=== PATIENT | female | born 1980 | race African-American/Black ===

== ENCOUNTER 2017-12-31 20:55 | Emergency (ER) | payer SELFPAY | END 2017-12-31 22:35 | disposition home or self-care (01) | LOC: BURERS 20:55 | DX: M77.12 Lateral epicondylitis, left elbow (principal); G43.909 Migraine, unspecified, not intractable, without status migrainosus; F31.9 Bipolar disorder, unspecified; F41.9 Anxiety disorder, unspecified; F17.210 Nicotine dependence, cigarettes, uncomplicated | CPT/HCPCS: 99282 ==

== ENCOUNTER 2018-07-13 00:08 | Emergency (ER) | payer SELFPAY ==
[2018-07-13] MEDS ORDERED: Ibuprofen 800 MG TAB ONE (00:24)
[2018-07-13] MEDS ORDERED: HYDROcodone/Acetaminophen 10/325 mg Tablet ONE (00:24)
== END 2018-07-13 00:31 | disposition home or self-care (01) ==
LOC: BURERS 00:08
DX: M25.512 Pain in left shoulder (principal); F31.9 Bipolar disorder, unspecified; F34.9 Persistent mood [affective] disorder, unspecified; F41.9 Anxiety disorder, unspecified; X50.0XXA Overexertion from strenuous movement or load, initial encounter
CPT/HCPCS: 99283

== ENCOUNTER 2018-09-21 23:16 | Emergency (ER) | payer SELFPAY ==
[2018-09-21] MEDS ORDERED: AMOXicillin 250 MG CAP ONE (23:46)
[2018-09-21] MEDS ORDERED: Benzonatate 100 MG CAP ONE (23:46)
[2018-09-21] MEDS ORDERED: Dexamethasone 4 MG TAB ONE (23:46)
== END 2018-09-22 00:01 | disposition home or self-care (01) ==
LOC: BURERS 23:16
DX: J06.9 Acute upper respiratory infection, unspecified (principal); J45.909 Unspecified asthma, uncomplicated; F31.9 Bipolar disorder, unspecified; F34.9 Persistent mood [affective] disorder, unspecified; Z79.51 Long term (current) use of inhaled steroids
CPT/HCPCS: 99283; J8540

== ENCOUNTER 2019-03-21 00:44 | Emergency (ER) | payer SELFPAY | END 2019-03-21 01:00 | disposition home or self-care (01) | LOC: BURERS 00:44 | DX: S29.012A Strain of muscle and tendon of back wall of thorax, initial encounter (principal); J45.909 Unspecified asthma, uncomplicated; F31.9 Bipolar disorder, unspecified; X50.0XXA Overexertion from strenuous movement or load, initial encounter | CPT/HCPCS: 99281 ==

== ENCOUNTER 2019-04-18 18:25 | Emergency (ER) | payer SELFPAY | END 2019-04-18 19:20 | disposition home or self-care (01) | LOC: BURERS 18:25 | DX: G89.29 Other chronic pain (principal); M25.512 Pain in left shoulder; M25.522 Pain in left elbow; M25.532 Pain in left wrist; J45.909 Unspecified asthma, uncomplicated; F31.9 Bipolar disorder, unspecified; F41.9 Anxiety disorder, unspecified; F17.210 Nicotine dependence, cigarettes, uncomplicated; Z79.51 Long term (current) use of inhaled steroids; Z79.899 Other long term (current) drug therapy | CPT/HCPCS: 99283 ==

== ENCOUNTER 2019-07-28 15:27 | Emergency (ER) | payer SELFPAY | END 2019-07-28 17:09 | disposition home or self-care (01) | LOC: BURERS 15:27 | DX: J06.9 Acute upper respiratory infection, unspecified (principal); F31.9 Bipolar disorder, unspecified; F41.9 Anxiety disorder, unspecified; F17.210 Nicotine dependence, cigarettes, uncomplicated | CPT/HCPCS: 87804; 99283 ==

== ENCOUNTER 2019-11-14 05:41 | Emergency (ER) | payer SELFPAY ==
[2019-11-14] MEDS ORDERED: Ibuprofen 200 MG TAB ONE (06:04)
--- NOTE | 2019-11-14 07:38 | RAD ---
RIGHT ANKLE 3 VIEWS: Date: 11/14/2019 No fracture seen. The joint surfaces are smooth and the bony structures appear intact. There may have been old trauma at the talonavicular joint, but this is certainly not recent. There is bony ossifica tion at the insertion of the Achilles tendon. IMPRESSION: No acute findings. POS: HOME
--- NOTE | 2019-11-14 07:40 | RAD ---
RIGHT KNEE 4 VIEWS: Date: 11/14/2019 No acute fracture or joint effusion seen. There may be a tiny bony density in the central part of the joint, or alternatively it may be a small bony spur projecting from the top of the tibia. In any debi e, it does not appear acute, or in the absence of a joint effusion, this further emphasizes this is n ot new. The articular surfaces of the knee are all smooth. IMPRESSION: No acute findings. POS: HOME
== END 2019-11-14 06:40 | disposition home or self-care (01) ==
LOC: BURERS 05:41
DX: S93.401A Sprain of unspecified ligament of right ankle, initial encounter (principal); S83.91XA Sprain of unspecified site of right knee, initial encounter; J45.909 Unspecified asthma, uncomplicated; F31.9 Bipolar disorder, unspecified; F17.210 Nicotine dependence, cigarettes, uncomplicated; F41.9 Anxiety disorder, unspecified; Z79.899 Other long term (current) drug therapy; W08.XXXA Fall from other furniture, initial encounter

== ENCOUNTER 2020-10-18 08:26 | Emergency (ER) | payer SELFPAY ==
[2020-10-18] MEDS ORDERED: HYDROcodone/Acetaminophen 5/325 mg Tablet ONE (08:42)
[2020-10-18] MEDS ORDERED: predniSONE 20 MG TAB ONE ×2 (08:58→08:59)
--- NOTE | 2020-10-18 10:01 | RAD ---
LEFT SHOULDER 3 VIEWS: DATE: 10/18/2020. FINDINGS: No fracture, dislocation, or AC joint widening was seen. No joint abnormality of concern was seen. There might be some minor cystic changes in the glenoid fossa, but no osteophytes or joint space narr owing was seen. IMPRESSION: No acute finding. POS: HOME
== END 2020-10-18 09:03 | disposition home or self-care (01) ==
LOC: BURERS 08:26
DX: M75.52 Bursitis of left shoulder (principal); F17.210 Nicotine dependence, cigarettes, uncomplicated
CPT/HCPCS: J7512

== ENCOUNTER 2020-12-03 00:47 | Emergency (ER) | payer SELFPAY ==
[2020-12-03] MEDS ORDERED: predniSONE 20 MG TAB ONE (01:10)
== END 2020-12-03 01:13 | disposition home or self-care (01) ==
LOC: BURERS 00:47
DX: M54.12 Radiculopathy, cervical region (principal); I10 Essential (primary) hypertension
CPT/HCPCS: 99283; J7512

== ENCOUNTER 2021-08-29 17:25 | Emergency (ER) | payer SELFPAY ==
[2021-08-30 20:53] LABS: SARS-CoV-2 PCR by NAA Not Detected (NotDetected)
== END 2021-08-29 17:55 | disposition home or self-care (01) ==
LOC: BURERS 17:25
DX: J06.9 Acute upper respiratory infection, unspecified (principal); Z20.822 Contact with and (suspected) exposure to COVID-19
CPT/HCPCS: 36415; 99283; U0003; U0005

== ENCOUNTER 2022-05-25 02:32 | Emergency (ER) | payer BC, OTHER, SELFPAY ==
[2022-05-25] MEDS ORDERED: Acetaminophen 500 MG TAB ONE (02:59)
== END 2022-05-25 03:05 | disposition home or self-care (01) ==
LOC: BURERS 02:32
DX: S00.03XA Contusion of scalp, initial encounter (principal); J44.9 Chronic obstructive pulmonary disease, unspecified; D64.9 Anemia, unspecified; Z79.899 Other long term (current) drug therapy; W18.30XA Fall on same level, unspecified, initial encounter
CPT/HCPCS: 99282

== ENCOUNTER 2023-05-30 03:26 | Emergency (ER) | payer BC ==
[2023-05-30] MEDS ORDERED: Ipratropium/Albuterol 3 ML NEB ONE (04:50)
[2023-05-30] MEDS ORDERED: predniSONE 20 MG TAB ONE (04:53)
== END 2023-05-30 05:11 | disposition home or self-care (01) ==
LOC: BURERS 03:26
DX: J45.901 Unspecified asthma with (acute) exacerbation (principal)
CPT/HCPCS: 71045; J7512; J7611; J7620

== ENCOUNTER 2025-05-22 23:14 | Emergency (ER) | payer OTHER ==
[2025-05-22] MEDS ORDERED: HYDROcodone/Acetaminophen 5/325 mg Tablet ONE (23:57)
== END 2025-05-23 00:01 | disposition home or self-care (01) ==
LOC: BURERS 23:14
DX: S16.1XXA Strain of muscle, fascia and tendon at neck level, initial encounter (principal); W19.XXXA Unspecified fall, initial encounter
CPT/HCPCS: 99283

== ENCOUNTER 2025-07-04 17:38 | Emergency (ER) | payer OTHER ==
[2025-07-04] MEDS ORDERED: Ibuprofen 800 MG TAB ONE (18:00)
== END 2025-07-04 19:00 | disposition home or self-care (01) ==
LOC: BURERS 17:38
DX: S83.91XA Sprain of unspecified site of right knee, initial encounter (principal); E66.9 Obesity, unspecified; J45.909 Unspecified asthma, uncomplicated; K21.9 Gastro-esophageal reflux disease without esophagitis; E78.00 Pure hypercholesterolemia, unspecified; Z79.51 Long term (current) use of inhaled steroids; Z79.899 Other long term (current) drug therapy; X50.3XXA Overexertion from repetitive movements, initial encounter; Y93.89 Activity, other specified